=== PATIENT | female | born 1980 | race Hispanic/Latino ===

== ENCOUNTER 2025-05-12 11:32 | Emergency (ER) | payer OTHER ==
[~2025-05-12] VITALS: Ht 162.6 cm; Wt 81.6 kg
[2025-05-12 14:17] LABS: BASOPHILS % 0.2 % (0.0-1.0); EOSINOPHILS % 0.6 % (0.0-6.0); LYMPHOCYTES % 12.0 % (18.0-39.1); MONOCYTES % 2.7 % (4.4-11.3); NEUTROPHILS % 84.1 % (38.7-80.0); RED CELL DISTRIBUTION WIDTH 15.0 % (11.7-14.4)
[2025-05-12 14:40] LABS: EST GLOMERULAR FILTRATION RATE 89 ML/MIN (>=60)
[2025-05-12] MEDS: SODIUM CHLORIDE 0.9% 1000ML 1,000 ML IV STA (15:17)
[2025-05-12 15:28] LABS: LEUKOCYTE ESTERASE ,URINE NEGATIVE (NEGATIVE); PROTEIN,URINE DIPSTICK NEGATIVE (NEGATIVE); URINE UROBILINOGEN 0.2 mg/dL (0.2 - 1)
[2025-05-12 16:58] VITALS: PULSE 85; RESP 16; TEMP 97.5
[2025-05-12 17:12] VITALS: BP 172/82; PULSE 82; RESP 18; O2SAT 100
== END 2025-05-12 17:17 | disposition home or self-care (01) ==
LOC: ER 12:56
DX: R33.9 Retention of urine, unspecified (principal); N85.2 Hypertrophy of uterus; I10 Essential (primary) hypertension; E11.9 Type 2 diabetes mellitus without complications; E78.5 Hyperlipidemia, unspecified
CPT/HCPCS: 36415; 51702; 74176; 80053; 81001; 84702; 85025; 87086; 99284; J7030; 51700